=== PATIENT | male | born 1995 | race Two or more races ===

== ENCOUNTER 2020-09-28 16:50 | Emergency (ER) | payer MEDICAID, OTHER ==
[~2020-09-28] VITALS: Ht 175.3 cm; Wt 79.4 kg
[2020-09-28 18:00] VITALS: BP 124/68
[2020-09-28] MEDS ORDERED: ONDANSETRON ODT 4 MG TAB PO ONE (18:30)
[2020-09-28] MEDS ORDERED: IBUPROFEN 800 MG TAB PO ONE (18:30)
== END 2020-09-28 20:04 | disposition home or self-care (01) ==
LOC: EDBD 16:50 → ER 16:50
DX: S13.9XXA Sprain of joints and ligaments of unspecified parts of neck, initial encounter (principal); V49.9XXA Car occupant (driver) (passenger) injured in unspecified traffic accident, initial encounter; Y93.89 Activity, other specified; Y92.89 Other specified places as the place of occurrence of the external cause; Y99.8 Other external cause status
CPT/HCPCS: 70450; 70486; 72125; 73502; 99285; Q0162

== ENCOUNTER 2022-08-22 12:13 | Emergency (ER) | payer MEDICAID, OTHER ==
[~2022-08-22] VITALS: Ht 167.6 cm; Wt 91.8 kg
[2022-08-22 14:06] LABS: Urine Bacteria NONE SEEN /hpf (None Seen); Urine Blood Negative /uL (Negative); Urine Mucus FEW (None Seen); Urine Specific Gravity 1.033 (1.001-1.035); Urine WBC 1 /hpf (0 - 3)
[2022-08-22 14:07] LABS: Hemoglobin 17.8 g/dL (13.5-17.5)
[2022-08-22 14:11] LABS: Mean Corpuscular Hemoglobin 29.6 pg (28.0-32.0); Mean Corpuscular Hgb Conc. 34.8 g/dL (32.0-36.0); Mean Corpuscular Volume 84.9 fL (80.0-100.0); Red Blood Cells 6.01 10^6/uL (4.5-5.90); Red Cell Distribution Width 13.2 % (11.8-14.3); White Blood Cell 11.8 10^3/uL (4.4-10.8)
[2022-08-22 14:14] LABS: Amphetamine Screen, Urine NEGATIVE (NEGATIVE); Barbiturate Scree,Urine NEGATIVE (NEGATIVE); Benzodiazephine Screen, Urine NEGATIVE (NEGATIVE); Cannabinoid Screen, Urine POSITIVE (NEGATIVE); Cocaine Screen, Urine NEGATIVE (NEGATIVE); Phencyclidine Screen, Urine NEGATIVE (NEGATIVE)
[2022-08-22 14:22] LABS: Opiate Scree,Urine NEGATIVE (NEGATIVE)
[2022-08-22 14:36] LABS: Acetaminophen 12.8 ug/mL (10-30); Salicylate < 1.7 mg/dL (2.8-20.0)
[2022-08-22 15:15] LABS: Basophils % (manual) 0 (0.0-2.0); Blast Cells 0; Eosinophils % (manual) 0 (0-7); Metamyelocytes % 0; Monocytes % (manual) 0 (0-12); Myelocytes % 0; Promyelocytes % 0; Reactive Lymphocytes 0
[2022-08-22 15:38] LABS: Alanine Aminotransferase 43 U/L (16-61); Albumin 4.4 g/dL (3.4-5.0); Alkaline Phosphatase 115 U/L (45-117); Anion Gap 7 (5-15); Aspartate Aminotransferase 31 U/L (15-37); BUN/Creatinine Ratio 15.9; Bilirubin, Total 0.7 mg/dL (0.2-1.0); Blood Alcohol < 3.0 mg/dL (0-5); Blood Urea Nitrogen 18 mg/dL (7-18); Calcium 8.9 mg/dL (8.5-10.1); Carbon Dioxide 24 mmol/L (21-32); Chloride 103 mmol/L (98-107); GFR African American 99 mL/min; GFR Non-African American 82 mL/min; Glucose 82 mg/dL (74-106); Magnesium 2.6 mg/dL (1.6-2.6); Potassium 3.9 mmol/L (3.5-5.1); Sodium 134 mmol/L (136-145); Total Protein 8.7 g/dL (6.4-8.2)
[2022-08-22 16:42] LABS: Band Neutrophils % (manual) 2; Lymphocytes % (manual) 11 (10.0-50.0)
[2022-08-22] MEDS ORDERED: SODIUM CHLORIDE 0.9% 1,000 ML IV ONE ×3 (18:30→23:00)
[2022-08-22 19:17] LABS: Calcium 8.7 mg/dL (8.5-10.1); Potassium 3.9 mmol/L (3.5-5.1)
[2022-08-23 00:04] LABS: Alanine Aminotransferase 38 U/L (16-61); Aspartate Aminotransferase 21 U/L (15-37)
[2022-08-24] MEDS ORDERED: ACETAMINOPHEN 325 MG TAB PO ONE (11:00)
[2022-08-24 12:00] VITALS: BP 124/81
== END 2022-08-24 12:35 | disposition short-term general hospital (02) ==
LOC: ER 12:13 → EDBD 12:13 → ER 08-24 12:34
DX: T43.2 Poisoning by, adverse effect of and underdosing of other and unspecified antidepressants (principal); R11.10 Vomiting, unspecified; R45.851 Suicidal ideations; F32.9 Major depressive disorder, single episode, unspecified; F41.9 Anxiety disorder, unspecified; F12.90 Cannabis use, unspecified, uncomplicated; Z98.890 Other specified postprocedural states; Z20.822 Contact with and (suspected) exposure to COVID-19; Y92.89 Other specified places as the place of occurrence of the external cause
CPT/HCPCS: 36415; 80048; 80053; 80307; 80320; 80329; 81001; 82962; 83735; 84450; 84460; 85007; 85027; 87426; 93005; 96360; 96361; 99285; J7030